=== PATIENT | female | born 2000 | race Two or more races ===

== ENCOUNTER 2021-03-24 12:24 | Observation (INO) | payer OTHER ==
[~2021-03-24] VITALS: Ht 152.4 cm; Wt 54.4 kg
[2021-03-24 12:48] VITALS: BP 120/79
[2021-03-24] MEDS ORDERED: PREN-96 PO (13:11)
[2021-03-24] MEDS ORDERED: LACTATED RINGER'S 1,000 ML IV ONE (13:30)
[2021-03-24] MEDS: TERBUTALINE SULFATE 1 MG/ML 1ML VIAL SC SCH ×3 (13:51→17:23)
[2021-03-24] MEDS ORDERED: BETAMETHASONE ACET (6MG/ML) 5ML VIAL IM ONE (14:30)
[2021-03-24] MEDS: NIFEdipine 10 MG CAP PO SCH ×2 (16:40→19:05)
== END 2021-03-24 21:32 | disposition home or self-care (01) ==
LOC: ER 12:24 → LDRP 12:41 → UNDOADMOB 12:47 → ER 12:53 → UNDODISOB 21:32
PROVIDERS: ADMIT Specialist; ATTEND Specialist
DX: O26.892 Other specified pregnancy related conditions, second trimester (principal); R10.32 Left lower quadrant pain; O36.8120 Decreased fetal movements, second trimester, not applicable or unspecified; Z3A.26 26 weeks gestation of pregnancy; V49.59XA Passenger injured in collision with other motor vehicles in traffic accident, initial encounter; Y93.89 Activity, other specified; Y92.89 Other specified places as the place of occurrence of the external cause; Y99.8 Other external cause status
CPT/HCPCS: 59025; 76815; 81002; 94760; 96360; 96361; 96372; 99284; G0378; J0702; J3105